=== PATIENT | male | born 1995 | race Caucasian/White ===

== ENCOUNTER 2018-03-19 08:50 | Emergency (ER) | payer MEDICAID, OTHER, SELFPAY ==
[2018-03-19] MEDS ORDERED: KETOROLAC 30 MG/1 ML ONE (09:44)
[2018-03-19] MEDS ORDERED: KETOROLAC 30 MG/1 ML IM ONE (10:00)
[2018-03-19 11:19] VITALS: BP 117/66
== END 2018-03-19 11:21 | disposition home or self-care (01) ==
LOC: ED 11:04
DX: S92.424A Nondisplaced fracture of distal phalanx of right great toe, initial encounter for closed fracture (principal); R07.89 Other chest pain; L73.9 Follicular disorder, unspecified; F17.200 Nicotine dependence, unspecified, uncomplicated; X50.1XXA Overexertion from prolonged static or awkward postures, initial encounter; Y93.89 Activity, other specified; Y92.009 Unspecified place in unspecified non-institutional (private) residence as the place of occurrence of the external cause; Y99.8 Other external cause status
CPT/HCPCS: 71046; 73630; 93005; 96372; 99284; J1885